=== PATIENT | female | born 1945 | race Caucasian/White ===

== ENCOUNTER 2020-12-18 03:18 | Inpatient (IN) | payer MEDICARE ==
[~2020-12-18] VITALS: Ht 152.4 cm; Wt 52.2 kg
--- NOTE | ~2020-12-18 | CON ---
[address] [address] CONSULTATION Name: LC NICOLE Room: [address] ADM IN M.R.#: [id number] Admission: 12/18/20 Attend Phys: Inocencio Pope Discharge: Date of : 45 Report #: [id number] THIS REPORT FOR: cc: Deedee Bingham MD, Cheerag D. MD Khosla,Ovidio Hyatt MD ~ DOC #: [id number] Ovidio Christopher MD DATE OF CONSULTATION: 12/18/2020 HISTORY OF PRESENT ILLNESS: This is a 75-year-old female patient who was evaluated by me for altered mental status. The patient's indicates that she had similar episode about 3 weeks ago, but this time it is more severe. She had a poorly defined history of TIA or strokes in the past. She is on chemotherapy for her ovarian cancer. At this time, altered mentation is going on for 2 days. She underwent a CT angiogram of the head and neck and that was unremarkable. She is very hard of hearing. REVIEW OF SYSTEMS: A 14-point review of system is positive for TIA 3 weeks ago, I am not sure it was a TIA at that time. She had TIAs in the past, though up in 2018. Does have a history of rheumatoid arthritis and hypertension. When she came in, her blood pressure was pretty high. She is on multiple medications including duloxetine and pregabalin at home. She is also on Plavix. She has a stimulator in her back. is also wondering if she is developing dementia. It looks like her memory had been falling for some time. During this episode, she was not able to speak, and later on examination, she was also found to be hyponatremic. The patient does have a chest port for chemotherapy. That was a relevant 14-point review of systems. She is very hard of hearing. PAST MEDICAL HISTORY: Positive for ovarian cancer. The patient has been confused recently. FAMILY HISTORY: Unremarkable. SOCIAL HISTORY: She is and the provided most of the history. PHYSICAL EXAMINATION: Her examination indicates that she is alert. She is responsive. She is very hard of hearing. She ultimately told me it is November, but could not tell me the date. I tried to do the cranial nerve examination. She could not cooperate, I cannot even tell if she can see or not. She moves all 4 extremities. I tried to do the sensory system examination, I was unsuccessful. There is no meningeal sign. There is no carotid bruit. Blood pressure is 136/52, respirations 16, pulse is 82 and temperature is 98.7. LABORATORY DATA: White count is normal at 7.3. I reviewed the [place] [address] CONSULTATION Name: LC NICOLE Room: [address] IN [facility]#: [id number] Admission: 12/18/20 Attend Phys: Inocencio Pope Discharge: Date of : 45 Report #: [id number] angio[address] CT scan is definitely abnormal posteriorly, which is worrisome because PRES as well as PML will start posteriorly. PML can occur in her case because of her tumor, although it is a rare diagnosis. RECOMMENDATION: I had a long talk with this patient, my recommendation was: 1. Get an EEG done. 2. Hold her Plavix and Lovenox for the time being and talk to pain management and if stimulator is higher up and I think she should have a spinal tap. I do not think she will be able to have a spinal tap for 3 days because that is how minimum our radiologist want to wait when the patient is on Plavix. 3. Agree with correcting hyponatremia, although that is not too bad. Because of structural changes on the CT scan, I think doing a spinal tap will be reasonable in this patient. Thank you very much for this referral. I spent more than 50 minutes of time taking care of this patient today and majority was spent counseling and coordinating. I initially talked to the patient, but I am not sure if the patient understand things, and therefore, I called the patient's after that and I discussed that with him also. I talked to the nurses also. MD EMMETT Oliva/SAIDA/ELIECER By: [id number] Christopher MD /omar
--- NOTE | ~2020-12-18 | EEG ---
[place] [address] EEG STUDY REPORT Name: LC NICOLE Room: [address] IN M.R.#: [id number] Admission: 12/18/20 Attend Phys: Inocencio Pope Discharge: Date of : 45 Report #: [id number] THIS REPORT FOR: cc: Deedee Bingham MD, Cheerag D. MD Khosla, Parveen K. MD ~ DOC #: [id number] Ovidio Christopher MD DATE OF SERVICE: 12/19/2020 This patient is being evaluated for some memory problem. EEG was done by placing the electrode by standard 10-20 system of electrode placement. Both referential and sequential montages were used for recording. Background activity in this patient's EEG is about 9 Hz and 30 microvolts. It is a symmetrical activity. The patient went to sleep that is associated with bilateral slowing and vertex sharp waves. Throughout the record, no epileptiform activity was noticed. IMPRESSION: This patient's EEG is intermixed with some theta range slowing on both sides. There is a nonspecific abnormality, which can occur with encephalopathy, effect of psychotropic medication, dementia, etc. Clinical correlation is recommended. Ovidio Christopher MD PK/VIS By: [id number] Christopher MD /omar
[2020-12-18 04:01] VITALS: BP 187/76
[2020-12-18] MEDS ORDERED: SUPER THERAVIT1 EACH PO (04:27)
[2020-12-18] MEDS ORDERED: CALCIUM CARBON500 MG PO (04:27)
[2020-12-18] MEDS ORDERED: CARVEDILOL25 MG PO (04:28)
[2020-12-18] MEDS ORDERED: PLAVIX 75 MG TA75 MG PO (04:28)
[2020-12-18] MEDS ORDERED: HYDROXYCHLOROQ200 M1 PO (04:29)
[2020-12-18] MEDS ORDERED: CYMBALTA20 MG PO (04:29)
[2020-12-18] MEDS ORDERED: LYRICA25 MG PO (04:30)
[2020-12-18] MEDS ORDERED: OMEPRAZOLE 20 M20 M1 PO (04:31)
[2020-12-18] MEDS ORDERED: LIPITOR40 MG PO (04:31)
[2020-12-18] MEDS ORDERED: CRANBERRY200 MG PO (04:32)
[2020-12-18] MEDS ORDERED: COZAAR 25 MG TA25 M2 PO (04:32)
[2020-12-18 04:47] LABS: ABSOLUTE BASOPHILS 0.1 thou/uL (0.0-0.2); ABSOLUTE EOSINOPHILS 0.3 thou/uL (0.0-0.7); ABSOLUTE LYMPHOCYTES 1.4 thou/uL (0.8-5.3); ABSOLUTE MONOCYTES 0.9 thou/uL (0.0-1.2); ABSOLUTE NEUTROPHILS 4.7 thou/uL (1.6-8.1); BASOPHILS 0.9 %; EOSINOPHILS 3.6 %; HEMATOCRIT 28.6 % (37.0-47.0); HEMOGLOBIN 9.8 gm/dL (12.0-15.0); MCH 33.7 pg (26.0-34.0); MCHC 34.4 g/dL (28.0-37.0); MONOCYTES 12.7 %; MPV 7.2 fl. (7.2-11.1); NUCLEATED RBCS 0 /100WBC; PLATELET COUNT* 274 thou/uL (150-400); POLYS 63.8 %; RBC 2.92 mil/uL (4.20-5.00); RDW-CV 15.8 % (10.5-14.5); WBC 7.3 thou/uL (4.0-11.0)
[2020-12-18 04:55] LABS: APTT 25.9 Seconds (25.0-31.3); PROTIME 10.8 Seconds (9.20-11.50)
[2020-12-18 04:59] LABS: URINE BILIRUBIN NEGATIVE (Negative); URINE BLOOD NEGATIVE (Negative); URINE CLARITY CLEAR; URINE COLOR YELLOW; URINE GLUCOSE-RANDOM NEGATIVE (Negative); URINE KETONES NEGATIVE (Negative); URINE LEUKOCYTES-REFLEX NEGATIVE (Negative); URINE NITRITE-REFLEX NEGATIVE (Negative); URINE PROTEIN TRACE (Negative); URINE UROBILINOGEN 0.2 E.U./dl (0.2-1.0)
[2020-12-18 05:43] LABS: ALBUMIN 2.8 g/dL (3.4-5.0); CALCIUM 8.1 mg/dL (8.5-10.1); CREATININE 0.6 mg/dL (0.6-1.3); TOTAL BILIRUBIN 0.4 mg/dL (<0.1-1.0); TOTAL PROTEIN 6.3 g/dL (6.4-8.2)
[2020-12-18 08:09] VITALS: BP 153/59
[2020-12-18 08:30] VITALS: BP 167/83
[2020-12-18] MEDS ORDERED: PREGABALIN50 MG PO (10:44)
--- NOTE | 2020-12-18 10:58 | EKG ---
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
[2020-12-18 11:14] VITALS: BP 177/69
--- NOTE | 2020-12-18 16:20 | NUR ---
PT ADMITTED TO ROOM 210 VIA CART FROM ED AT APPROX 0830, PT AOX3, VERY HARD OF HEARING AND A LITTLE CONFUSED. PT'S CAME IN A LITTLE LATER AND UPDATED ON POC. , SID, IS ALSO DPOA SO ADMISSION ASSESSMENT AND HX COMPLETED W/ PT AND , HOME MEDS RECONCILED. PT ORIENTED TO ROOM AND CALL LIGHT. NEURO CONSULT IN PLACE. FLUIDS RUNNING AND PT GOAL IS TO WORK W/ NEURO AND INCREASE ORAL INTAKE. ENSURE GIVEN TO PT R/T PT NOT EATING VERY MUCH AND NOT BEING ABLE TO TOLERATE WHOLE FOODS R/T RECENT ORAL SURGERY, CAN ONLY EAT PUREED FOODS. PT WORKED W/ ST AND OT.
[2020-12-18 16:24] VITALS: BP 136/52
[2020-12-18 20:00] VITALS: BP 146/66
[2020-12-19 00:45] VITALS: BP 163/62
[2020-12-19 03:06] LABS: GLYCOHEMOGLOBIN (HGB A1C) 5.4 % (4.8-5.6)
[2020-12-19 04:38] VITALS: BP 153/61
[2020-12-19 05:52] LABS: ABSOLUTE BASOPHILS 0.1 thou/uL (0.0-0.2); ABSOLUTE EOSINOPHILS 0.1 thou/uL (0.0-0.7); ABSOLUTE MONOCYTES 0.7 thou/uL (0.0-1.2); ABSOLUTE NEUTROPHILS 5.3 thou/uL (1.6-8.1); BASOPHILS 0.7 %; EOSINOPHILS 1.8 %; HEMATOCRIT 27.3 % (37.0-47.0); HEMOGLOBIN 9.4 gm/dL (12.0-15.0); LYMPHOCYTES 13.9 %; MCH 33.4 pg (26.0-34.0); MCHC 34.3 g/dL (28.0-37.0); MCV 97.3 fL (80.0-100.0); MONOCYTES 9.4 %; NUCLEATED RBCS 0 /100WBC; PLATELET COUNT* 261 thou/uL (150-400); POLYS 74.2 %; RDW-CV 15.5 % (10.5-14.5); WBC 7.1 thou/uL (4.0-11.0)
[2020-12-19 06:01] LABS: CALCIUM 7.9 mg/dL (8.5-10.1); CREATININE 0.5 mg/dL (0.6-1.3); POTASSIUM 3.7 mmol/L (3.5-5.1)
[2020-12-19 06:04] LABS: CHOLESTEROL 170 mg/dL (<200); HDL CHOLESTEROL 62 mg/dL (>40); LDL CHOLESTEROL 96 mg/dL (<100); TC:HDL 2.7 Ratio (Not establshd); TRIGLYCERIDE 64 mg/dL (<150); VLDL 13 mg/dL (<40)
[2020-12-19 06:13] LABS: SERUM ASSESSMENT Clear
[2020-12-19 08:00] VITALS: BP 158/65
[2020-12-19 12:00] VITALS: BP 163/67
--- NOTE | 2020-12-19 12:50 | NUR ---
zeenat spk with pt's at bedside as pt was being prepped for EEG. pt lives homwe with spouse, uses a walker "sometimes." pt spouse indicated he sometimes assist with adls. pt has no hx with hh or snf pt will probably need hh vs snf at co. pt is currently receiving chemo therapy. the poc is for pt to have a lumbar puncture.
[2020-12-19 16:00] VITALS: BP 173/61
--- NOTE | 2020-12-19 19:38 | NUR ---
SPOKE W/ PT'S PAIN MANAGEMENT DR, DR PETER THOMAS AT PAIN CLINIC, WHO STATES WE ARE OKAY TO DO SPINAL TAP SINCE HER LEAD END AT T12. DR JIMENEZ NOTIFIED AND STATES WE NEED TO HOLD PLAVIX FOR 3 DAYS BEFORE WE CAN DO A SPINAL TAP ON PT.
[2020-12-19 20:34] VITALS: BP 177/61
[2020-12-20] VITALS (7 sets, daily range): BP systolic 139–200; BP diastolic 49–77
[2020-12-20 04:23] LABS: ABSOLUTE BASOPHILS 0.1 thou/uL (0.0-0.2); ABSOLUTE EOSINOPHILS 0.3 thou/uL (0.0-0.7); ABSOLUTE LYMPHOCYTES 1.3 thou/uL (0.8-5.3); ABSOLUTE MONOCYTES 0.8 thou/uL (0.0-1.2); ABSOLUTE NEUTROPHILS 4.9 thou/uL (1.6-8.1); BASOPHILS 0.9 %; EOSINOPHILS 3.9 %; HEMOGLOBIN 8.7 gm/dL (12.0-15.0); LYMPHOCYTES 17.3 %; MCH 33.6 pg (26.0-34.0); MCHC 34.8 g/dL (28.0-37.0); MCV 96.7 fL (80.0-100.0); MONOCYTES 10.6 %; MPV 6.9 fl. (7.2-11.1); NUCLEATED RBCS 0 /100WBC; PLATELET COUNT* 245 thou/uL (150-400); POLYS 67.3 %; RBC 2.59 mil/uL (4.20-5.00); RDW-CV 15.1 % (10.5-14.5); WBC 7.3 thou/uL (4.0-11.0)
[2020-12-20 05:31] LABS: ALBUMIN 2.5 g/dL (3.4-5.0); CALCIUM 8.1 mg/dL (8.5-10.1); CREATININE 0.4 mg/dL (0.6-1.3); POTASSIUM 3.6 mmol/L (3.5-5.1); TOTAL BILIRUBIN 0.4 mg/dL (<0.1-1.0); TOTAL PROTEIN 5.7 g/dL (6.4-8.2)
--- NOTE | 2020-12-20 07:43 | NUR ---
PT IS ABLE TO COMMUNICATE HER NEEDS TO STAFF WITH MINOR DIFFICULTY; SHE IS [id number], BUT DOES HAVE HEARING AIDS WITH HER. SHE HAS DENIED THE NEED FOR PAIN MEDICATION UP TO THIS TIME. PLAVIX ON HOLD FOR LIKELY SPINAL TAP ON . OR FRI. PER NEUROLOGY.
--- NOTE | 2020-12-20 13:32 | NUR ---
Pt declining lumbar puncture. Discharging to home today, [facility] faxed HH referral to [facility]. [facility] provided with [place], from [employer], contact info, interested in renting a hospital bed.
--- NOTE | 2020-12-20 13:36 | NUR ---
Reviewed discharge teaching with patient and spouse (DPOA); verbalized understanding. Deaccessed R chest port and dc'd school lunch monitor. Awaiting WC for discharge.
== END 2020-12-20 13:45 | disposition home health service (06) | DRG 640 ==
LOC: M.ERS 03:18 → EDBD 03:18 → M.2W 05:58 → M.TBA-ER 05:58 → M.2W 08:27
PROVIDERS: Internal Medicine; Personal Emergency Response Attendant; ADMIT Internal Medicine; ATTEND Internal Medicine
DX: E87.1 Hypo-osmolality and hyponatremia (principal); G93.41 Metabolic encephalopathy; E44.0 Moderate protein-calorie malnutrition; C56.9 Malignant neoplasm of unspecified ovary; Z20.822 Contact with and (suspected) exposure to COVID-19; I10 Essential (primary) hypertension; M06.9 Rheumatoid arthritis, unspecified; F03.90 Unspecified dementia, unspecified severity, without behavioral disturbance, psychotic disturbance, mood disturbance, and anxiety; I16.0 Hypertensive urgency; D64.9 Anemia, unspecified; R47.81 Slurred speech; Z88.1 Allergy status to other antibiotic agents; Z86.73 Personal history of transient ischemic attack (TIA), and cerebral infarction without residual deficits; Z79.899 Other long term (current) drug therapy; Z92.21 Personal history of antineoplastic chemotherapy; Z79.02 Long term (current) use of antithrombotics/antiplatelets; Z88.0 Allergy status to penicillin; Z88.2 Allergy status to sulfonamides; Z68.22 Body mass index [BMI] 22.0-22.9, adult